=== PATIENT | male | born 1940 ===

== ENCOUNTER 2016-11-25 13:20 | Outpatient (RCR) | payer MEDICARE, BC | END 2016-12-14 | disposition home or self-care (01) | LOC: WCC 13:20 | DX: L97.523 Non-pressure chronic ulcer of other part of left foot with necrosis of muscle (principal); E11.621 Type 2 diabetes mellitus with foot ulcer; E11.22 Type 2 diabetes mellitus with diabetic chronic kidney disease; N18.6 End stage renal disease; I25.10 Atherosclerotic heart disease of native coronary artery without angina pectoris; Z79.02 Long term (current) use of antithrombotics/antiplatelets; Z79.82 Long term (current) use of aspirin | CPT/HCPCS: 82962; G0277; G0463 ==

== ENCOUNTER 2016-12-16 10:00 | Outpatient (RCR) | payer MEDICARE, BC | END 2017-01-14 | disposition home or self-care (01) | LOC: WCC 10:00 | DX: E11.621 Type 2 diabetes mellitus with foot ulcer (principal); L97.523 Non-pressure chronic ulcer of other part of left foot with necrosis of muscle; E11.22 Type 2 diabetes mellitus with diabetic chronic kidney disease; N18.6 End stage renal disease; Z99.2 Dependence on renal dialysis; I25.10 Atherosclerotic heart disease of native coronary artery without angina pectoris | CPT/HCPCS: 82962; G0277 ==

== ENCOUNTER 2017-01-15 10:00 | Outpatient (RCR) | payer MEDICARE, BC | END 2017-02-13 | disposition home or self-care (01) | LOC: WCC 10:00 | DX: L97.523 Non-pressure chronic ulcer of other part of left foot with necrosis of muscle (principal); E11.621 Type 2 diabetes mellitus with foot ulcer; I25.10 Atherosclerotic heart disease of native coronary artery without angina pectoris; E11.22 Type 2 diabetes mellitus with diabetic chronic kidney disease; N18.6 End stage renal disease; Z79.82 Long term (current) use of aspirin; Z79.02 Long term (current) use of antithrombotics/antiplatelets; J44.9 Chronic obstructive pulmonary disease, unspecified | CPT/HCPCS: 82962; G0277 ==